=== PATIENT | female | born 1955 | race Caucasian/White ===

== ENCOUNTER 2017-09-07 17:45 | Observation (INO) | payer OTHER ==
[~2017-09-07] VITALS: Ht 172.7 cm; Wt 65.8 kg
[~2017-09-07 17:45] MED LIST: FLUOXETINE HYDR20 MG PO; FLUOXETINE10 MG PO; FLUOXETINE40 MG PO; KENALOG 0.1% LO60 ML TOP; LEVOTHYROXIN0.075 M1 PO; MAGNESIUM OXID400 MG PO; MASON NATURAL1200 MG PO; METAMUCIL CLEAR1 POW PO; NADOLOL20 MG PO; NASONEX0.05 MG/Ac NAS; PREDNICOT20 MG PO; PROTONIX 40MG T40 MG PO; PROZAC40 MG PO; VITAMIN B COMPL1 CAP PO; VITAMIN D31000 IU PO; XANAX 0.25MG0.25 MG PO
--- NOTE | 2017-09-07 18:04 | ED GI/GU/ABDOMINAL COMPLAINT ---
History of Present Illness General Chief Complaint: Abdominal Pain/Flank Pain Stated Complaint: ABD PAIN X1 DAY Source: patient, family, old records Exam Limitations: no limitations Vital Signs & Intake/Output Vital Signs & Intake/Output Vital Signs Date Time Temp Pulse Resp B/P B/P Pulse O2 O2 Flow FiO2 Mean Ox Delivery Rate 09/07 2146 97.6 61 18 113/64 95 Room Air 09/07 1751 94.6 56 16 124/78 99 Room Air Room Air Allergies Coded Allergies: Penicillins (Pt reports does not remember 09/07/17) Reconcile Medications Cholecalciferol (Vitamin D3) (Vitamin D) 1,000 UNIT TABLET 1 TAB PO DAILY SUPPLEMENT (Reported) Fish Oil/Dha/Epa (Fish Oil 1,200 MG Fish Oil) 1,200 MG-144 MG-216 MG CAPSULE 1 CAP PO DAILY SUPPLEMENT (Reported) Fluoxetine HCl 60 MG TABLET 1 TAB PO DAILY ANXIETY (Reported) Levothyroxine Sodium 75 MCG TABLET 1 TAB PO DAILY THYROID (Reported) Magnesium Oxide (Magnesium) 500 MG CAPSULE 1,000 MG PO DAILY SUPPLEMENT ( Reported) Mometasone Furoate (Nasonex) 50 MCG SPRAY.PUMP 2 SPRAY NASB AD PRN NASAL CONGESTION (Reported) Nadolol 20 MG TABLET 1 TAB PO DAILY HEART (Reported) Pantoprazole Sodium (Protonix) 40 MG TABLET.DR 1 TAB PO PRN GI (Reported) Rosuvastatin Calcium (Crestor) 10 MG TABLET 1 TAB PO DAILY CHOLESTEROL ( Reported) Vitamin B Complex 1 EACH CAPSULE 1 CAP PO DAILY SUPPLEMENT (Reported) Triage Note: PT TO TRIAGE WITH ABD PAIN SINCE 1000 TODAY. PT STATES IT COMES AND GOES AND DENIES N/V/D. DENIES FEVERS. PT STATES SHE IS PASSING GAS. HX OF OBSTRUCTIONS. Triage Nurses Notes Reviewed? yes ? n Is pt currently ? No Onset: Abrupt Duration: day(s): (1), constant Timing: recent history Quality/Severity: aching, cramping, moderate Severity Numbers: 7 Location: generalized abdomen Radiation: back Activities at Onset: none Prior Abdominal Problems: similar symptoms No Modifying Factors: none Associated Symptoms: denies HPI: 52-year-old female with history of recurrent SBO's, hysterectomy cholecystectomy presents to the ER complaining of a one-day history of midline abdominal pain radiating into her back. She denies any associated nausea vomiting diarrhea constipation. She's been passing gas normally she had a bowel movement prior to arrival. She is not taken anything for symptoms. No fever no chills no urinary complaints. Patient states that she came in because she is concerned she has another SBO. No sick contacts no chest pain or shortness of breath. pt last ate at lunch, denies worsening of her symptms with eating. (Robert Heard) Past History Travel History Traveled to [place] past 21 day No Medical History Any Pertinent Medical History? 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 No (Robert Heard) Review of Systems Review of Systems Constitutional: Reports: see HPI. All Other Systems: Reviewed and Negative Comments Review of systems: See HPI, All other systems negative. Constitutional, no chills no fever, HEENT: no sore throat no congestion Cardiovascular: No chest pain Skin: no rashes, no change in skin Respiratory: No dyspnea no cough GI: No nausea no vomiting, no diarrhea, no bloating/constipation : No dysuria No hematuria, no frequency Muscle skeletal: No joint pain, no back pain Neurologic: , no headache Heme/endocrine: No bruising (Robert Heard) Physical Exam Physical Exam General Appearance: well developed/nourished, no apparent distress, alert Gastrointestinal: normal bowel sounds, soft, non-tender Comments: Well-developed well-nourished person in no acute distress HEENT: Normal EENT exam; PERRL, EOMI, HEAD is atraumatic. moist mucous membranes. Neck: Supple, normal range of motion Back: Full range of motion Cardiovascular: Regular rate and rhythms no murmur Respiratory:No respiratory distress. Patient speaking in full complete sentences. Breath sounds clear to auscultation bilaterally: NO W/R/R Abdomen: Soft, nontender nondistended, no appreciable organomegaly. Normal bowel sounds. No rebound/guarding, No appreciable enlargement of the abdominal aorta, No ascites. Extremity: No edema, full range of motion of extremities Neuro: Alert oriented x3, motor sensory normal, There were no obvious focal neurologic abnormalities. Skin: No appreciable rash on exposed skin, skin is warm and dry. Psych: Mood and affect is normal, memory and judgment is normal. Core Measures ACS in differential dx? No Sepsis Present: No Sepsis Focused Exam Completed? No (Francine GARG,Robert) Progress Differential Diagnosis: appendicitis, bowel obstruction, colon cancer, diverticulitis, inflamm bowel dis, pancreatitis, PUD/GERD, perforated viscous, SBO, UTI/pyelo Plan of Care: Orders Procedure Date/time Status Nothing by Mouth 09/08 B Active Pathway - chart 09/07 2135 Active Code Status 09/[address] in observation 09/07 2118 Active Patient Data 09/07 2118 Active Add-on Test (ER Only) 09/07 194 Active HEPATITIS PANEL 09/07 1846 Active DIRECT BILIRUBIN 09/07 1846 Active Saline Lock 09/07 180 Active EKG 09/07 180 Active URINALYSIS 09/07 1751 Complete TROPONIN LEVEL 09/07 1751 Active LIPASE 09/07 1751 Active COMPREHENSIVE METABOLIC PANEL 09/07 1751 Active CBC WITHOUT DIFFERENTIAL 09/07 1751 Complete VTE Mechanical Prophylaxis 09/07 UNK Active Vital Signs 09/07 UNK Active Intake & Output 09/07 UNK Active Activity/Ambulation 09/07 UNK Active Current Medications Sig/Devin Start time Last Medication Dose Stop Time Status Admin Atorvastatin Calcium 40 MG 1700 09/08 1700 UNVr (Lipitor) Fluoxetine HCl 60 MG DAILY 09/08 1000 UNVr (Prozac) Levothyroxine Sodium 0.075 MG DAILY 09/08 1000 UNVr (Synthroid) Magnesium Oxide 1,000 MG DAILY 09/08 1000 UNVr (Mag-Ox) Nadolol 20 MG DAILY 09/08 1000 UNVr (Corgard) Pantoprazole Sodium 40 MG DAILY 09/08 1000 UNVr (Protonix) Heparin Sodium 5,000 UNIT Q8 09/07 2200 UNVr (Porcine) Ondansetron HCl 4 MG Q8P PRN 01/10 2145 UNVr (Zofran) Sodium Chloride 1,000 ML .Q10H 09/07 2144 UNVr (Normal Saline 0.9%) Laboratory Tests 09/07/171905: Urine Color YEL, Urine Clarity CLEAR, Urine pH 7.5, Ur Specific [place] 1.015, Urine Protein TRACE H, Urine Ketones TRACE H, Urine Nitrite NEG, Urine Bilirubin NEG, Urine Urobilinogen 0.2, Ur Leukocyte Esterase NEG, Ur Microscopic SEDIMENT EXAMINED, Urine RBC RARE, Urine WBC RARE, Ur Epithelial Cells RARE, Urine Bacteria RARE H, Urine Mucus FEW, Urine Hemoglobin NEG, Urine Glucose NEG 09/07/17 1846: Anion Gap 16, Estimated GFR > 60, BUN/Creatinine Ratio 22.9, Glucose 99, Calcium 10.5 H, Total Bilirubin 3.8 H, Direct Bilirubin 0.4, AST 37 H, ALT 56 H, Alkaline Phosphatase 92, Troponin I < 0.01, Total Protein 8.3 H, Albumin 5.0, Globulin 3.3, Albumin/Globulin Ratio 1.5, Lipase 62, CBC w Diff MAN DIFF ORDERED , RBC 4.91, MCV 91.6, MCH 31.1 H, RDW 12.1, MPV 8.2, Gran % 88.4 H, Lymphocytes % 7.7 L, Monocytes % 3.1, Eosinophils % 0.5, Basophils % 0.3, Absolute Granulocytes 8.6 H, Segmented Neutrophils 77 H, Band Neutrophils 8 H , Absolute Lymphocytes 0.7 L, Lymphocytes 11 L, Monocytes 3, Absolute Monocytes 0.3, Absolute Eosinophils 0, Basophils 1, Absolute Basophils 0, Platelet Estimate ADEQUATE, Normocytic RBCs VERIFIED, Normochromic RBCs VERIFIED , PUBS MCHC 34.0, Hepatitis A IgM Ab Pending, Hep Bs Antigen Pending, Hep B Core IgM Ab Conf Pending, Hepatitis C Antibody Pending Patient declining anything for pain and offered she denies nausea vomiting. Labs ordered CAT scan ordered case discussed with Dr. rossi 1929 repeat evaluation patient states symptoms have resolved pending labs and CAT scan pts bili noted to be chronically elevated dating back through 2014- 2.1-3.7 as with elvated lfts, pt has no ruq pain- pt has history of gilbert syndrome [address] remains asymptomatic I discussed the patient CAT scan findings she last ate around lunchtime this afternoon.she denies pain, no nausea. 2029 case d/w dr alvarado will have surgical pa eval 5- sugrical pa chaz tavares in dept will place pt in obs under dr alvarado, no ngt at thsi time Diagnostic Imaging: Viewed by Me: CT Scan. Discussed w/RAD: CT Scan. Radiology Impression: PATIENT: RONALD ZALDIVAR PRESENT AGE: 62 PATIENT ACCOUNT NO: [id number] : 56 LOCATION: ER ORDERING PHYSICIAN: Robert GARG SERVICE DATE: 09/07/17 EXAM TYPE: CAT - CT ABD & PELVIS W IV CONTRAST EXAMINATION: CT ABDOMEN AND PELVIS WITH CONTRAST CLINICAL INFORMATION: Midline abdominal pain for one day. COMPARISON: CT scan abdomen pelvis 07/26/2016 TECHNIQUE: Multidetector volumetric imaging was performed of the abdomen and pelvis following IV administration of 95 mL of Optiray 320 intravenous contrast. Sagittal and coronal reformatted images were obtained on the technologist's workstation. DLP: 286.4 mGy-cm FINDINGS: LUNG BASES: Pacemaker lead at base of heart right ventricle. Lung bases are clear. LIVER, GALLBLADDER, AND BILIARY TREE: The liver is normal in size, shape, and attenuation. No focal hepatic lesion or biliary ductal dilatation is present. Gallbladder is absent. The extrahepatic CBD measures 6 mm. No calcified stone in the bile ducts. PANCREAS: Unremarkable. SPLEEN: Unremarkable. ADRENAL GLANDS: Unremarkable. KIDNEYS AND URETERS: The kidneys are normal in size, shape, and attenuation. No hydronephrosis, hydroureter, or calculi seen. No perinephric stranding. BLADDER: Unremarkable. GASTROINTESTINAL TRACT: There is a pattern of dilated and nondilated bowel loops in the abdomen. The stomach is relatively distended with fluid and some debris. The duodenum is decompressed as are proximal small bowel loops. At the midabdomen there is dilated small bowel containing primarily fluid. This distention extends down to the terminal ileum but there is a small bowel loop in the low pelvis which is decompressed. This is interposed between dilated segments. There is also fluid and mild dilatation of the ascending colon, transverse and descending colon. The distal descending colon and the sigmoid colon are decompressed. Small volume of stool in the colon. No diverticula of the colon. The appendix is normal. No bowel wall edema. Bowel pattern likely from a small bowel obstruction. MESENTERY: No free air or free fluid. No inflammation. ABDOMINAL WALL: No significant hernia is appreciated. LYMPH NODES: Normal. VASCULAR: Atherosclerotic vascular wall calcifications of aorta without aneurysm. PELVIC VISCERA: Uterus is absent. No adnexal adenopathy. OSSEOUS STRUCTURES: Mild degenerative spondylosis of the facet joints lower lumbar spine. Grade 1 anterolisthesis of L3 on L4 due to facet joint arthrosis. IMPRESSION: Abnormal bowel pattern likely due to a small bowel obstruction. DICTATED BY: Emmanuel Miller MD DATE/TIME DICTATED:09/07/171956 EDGE BANDING OFF BEARER:LOLA DATE/TIME TRANSCRIBED:09/07/171956 CONFIDENTIAL, DO NOT COPY WITHOUT APPROPRIATE AUTHORIZATION. <Electronically signed in Other Vendor System> SIGNED BY: Emmanuel Miller MD 09/07/172013 Initial ED EKG: atrial paced at 70, no acute st seg changes, normal axis Prior EKG: unchanged (Robert Heard) Departure Departure Time of Disposition: 2130 Disposition: STILL A PATIENT Condition: Stable Clinical Impression Primary Impression: Small bowel obstruction Secondary Impressions: Elevated bilirubin Referrals: Pantera LEON,Ted Siegel (PCP/Family) Departure Forms: Customer Survey General Discharge Information Observation Note Spoke With: Александр LEON,Jose Maguire [facility] Patient In: Non-ED OBS Care Area Rationale for Observation: My rational for observation is as follows serial abdominal exams IV fluids and IV pain medication IV antiemetics premature discharge in medically harmful given patient's recurrent history of SBO.. (Robert Heard) PA/GEOSCIENCE SPECIALIST Co-Sign Statement Statement: ED Attending supervision documentation- x I saw and evaluated the patient. I have also reviewed all the pertinent lab results and diagnostic results. I agree with the findings and the plan of care as documented in the PA's/GEOSCIENCE SPECIALIST's documentation. N/V/D, diffuse abdominal tenderness, hyperactive bs w SBO on CT [] I have reviewed the ED Record and agree with the PA's/GEOSCIENCE SPECIALIST's documentation. [] Additions or exceptions (if any) to the PAs/GEOSCIENCE SPECIALIST's note and plan are summarized below: [] (Kinsey LEON,Dustin)
[2017-09-07] MEDS ORDERED: LEVOTHYROXINE75 MCG PO (18:22)
[2017-09-07] MEDS ORDERED: CRESTOR10 M1 PO (18:22)
[2017-09-07] MEDS ORDERED: NADOLOL20 M1 PO (18:23)
[2017-09-07] MEDS ORDERED: MAGNESIUM500 M2 PO (18:23)
[2017-09-07] MEDS ORDERED: FISH OIL 1,2001 EACH PO (18:24)
[2017-09-07] MEDS ORDERED: VITAMIN D1000 UNIT PO (18:24)
[2017-09-07] MEDS ORDERED: VITAMIN B COMP1 EACH PO (18:24)
[2017-09-07] MEDS ORDERED: ALPRAZOLAM0.25 M1 PO (18:25)
[2017-09-07] MEDS ORDERED: NASONEX17 GM NASB (18:25)
[2017-09-07] MEDS ORDERED: PROTONIX40 M3 PO (18:25)
[2017-09-07] MEDS ORDERED: FLUOXETINE HCL60 MG PO (18:28)
[2017-09-07 19:08] LABS: ABSOLUTE BASOPHIL COUNT 0 /CUMM (0.0-0.2); ABSOLUTE EOSINOPHIL COUNT 0 /CUMM (0.0-0.7); ABSOLUTE GRANULOCYTE CT 8.6 /CUMM (1.4-6.5); ABSOLUTE LYMPH COUNT 0.7 /CUMM (1.2-3.4); ABSOLUTE MONOCYTE COUNT 0.3 /CUMM (0.10-0.60); BASOPHIL % 0.3 % (0.0-2.0); EOSINOPHIL % 0.5 % (0-5); MEAN CORPUSCULAR HGB 31.1 PG (27.0-31.0); MEAN CORPUSCULAR VOLUME 91.6 FL (81.0-99.0); MEAN PLATELET VOLUME 8.2 FL (7.4-10.4); PLATELET COUNT 234 /CUMM (130-400); RBC DISTRIBUTION WIDTH 12.1 % (11.5-14.5); RED BLOOD CELL CT 4.91 /CUMM (4.20-5.40); WHITE BLOOD CELL COUNT 9.8 /CUMM (4.8-10.8)
[2017-09-07 19:12] LABS: GRANULOCYTE % 88.4 % (42.2-75.2)
--- NOTE | 2017-09-07 20:14 | CT SCAN REPORT ---
EXAMINATION: CT ABDOMEN AND PELVIS WITH CONTRAST CLINICAL INFORMATION: Midline abdominal pain for one day. COMPARISON: CT scan abdomen pelvis 07/26/2016 TECHNIQUE: Multidetector volumetric imaging was performed of the abdomen and pelvis following IV administration of 95 mL of Optiray 320 intravenous contrast. Sagittal and coronal reformatted images were obtained on the technologist's workstation. DLP: 286.4 mGy-cm FINDINGS: LUNG BASES: Pacemaker lead at base of heart right ventricle. Lung bases are clear. LIVER, GALLBLADDER, AND BILIARY TREE: The liver is normal in size, shape, and attenuation. No focal hepatic lesion or biliary ductal dilatation is present. Gallbladder is absent. The extrahepatic CBD measures 6 mm. No calcified stone in the bile ducts. PANCREAS: Unremarkable. SPLEEN: Unremarkable. ADRENAL GLANDS: Unremarkable. KIDNEYS AND URETERS: The kidneys are normal in size, shape, and attenuation. No hydronephrosis, hydroureter, or calculi seen. No perinephric stranding. BLADDER: Unremarkable. GASTROINTESTINAL TRACT: There is a pattern of dilated and nondilated bowel loops in the abdomen. The stomach is relatively distended with fluid and some debris. The duodenum is decompressed as are proximal small bowel loops. At the midabdomen there is dilated small bowel containing primarily fluid. This distention extends down to the terminal ileum but there is a small bowel loop in the low pelvis which is decompressed. This is interposed between dilated segments. There is also fluid and mild dilatation of the ascending colon, transverse and descending colon. The distal descending colon and the sigmoid colon are decompressed. Small volume of stool in the colon. No diverticula of the colon. The appendix is normal. No bowel wall edema. Bowel pattern likely from a small bowel obstruction. MESENTERY: No free air or free fluid. No inflammation. ABDOMINAL WALL: No significant hernia is appreciated. LYMPH NODES: Normal. VASCULAR: Atherosclerotic vascular wall calcifications of aorta without aneurysm. PELVIC VISCERA: Uterus is absent. No adnexal adenopathy. OSSEOUS STRUCTURES: Mild degenerative spondylosis of the facet joints lower lumbar spine. Grade 1 anterolisthesis of L3 on L4 due to facet joint arthrosis. IMPRESSION: Abnormal bowel pattern likely due to a small bowel obstruction.
--- NOTE | 2017-09-07 21:21 | Admission Core Measures ---
Acute Coronary Syndrome (CM) ACS Core Measures Acute Coronary Syndrome Diagnosis No Congestive Heart Failure (NEW) CHF Core Measures Congestive Heart Failure Diagnosis No Cerebrovascular Accident (NEW) CVA Core Measures CVA/TIA Diagnosis No Venous Thromboembolism VTE Core Tello (View Protocol) VTE Risk Factors Age>40 No Mechanical VTE Prophylaxis d/t N/A MechProphylax Ordered No VTE Pharm Prophylaxis d/t NA PharmProphylax ordered Problem List As ranked by this Provider includes Assessment & Plan 1. Small bowel obstruction HOME MEDS Home Med List Cholecalciferol (Vitamin D3) (Vitamin D) 1,000 UNIT TABLET 1 TAB PO DAILY SUPPLEMENT (Reported) Fish Oil/Dha/Epa (Fish Oil 1,200 MG Fish Oil) 1,200 MG-144 MG-216 MG CAPSULE 1 CAP PO DAILY SUPPLEMENT (Reported) Fluoxetine HCl 60 MG TABLET 1 TAB PO DAILY ANXIETY (Reported) Levothyroxine Sodium 75 MCG TABLET 1 TAB PO DAILY THYROID (Reported) Magnesium Oxide (Magnesium) 500 MG CAPSULE 1,000 MG PO DAILY SUPPLEMENT ( Reported) Mometasone Furoate (Nasonex) 50 MCG SPRAY.PUMP 2 SPRAY NASB AD PRN NASAL CONGESTION (Reported) Nadolol 20 MG TABLET 1 TAB PO DAILY HEART (Reported) Pantoprazole Sodium (Protonix) 40 MG TABLET.DR 1 TAB PO PRN GI (Reported) Rosuvastatin Calcium (Crestor) 10 MG TABLET 1 TAB PO DAILY CHOLESTEROL ( Reported) Vitamin B Complex 1 EACH CAPSULE 1 CAP PO DAILY SUPPLEMENT (Reported)
--- NOTE | 2017-09-07 21:34 | History & Physical ---
Miguel Kasper 09/07/172120: General Information and HPI MD Statement: I have seen and personally examined RONALD CARTER and documented this H&P. The patient is a 62 year old F who presented with a patient stated chief complaint of [abdominal pain]. Source of Information: patient, family Exam Limitations: no limitations History of Present Illness: Ms. Carter is a 62-year-old female with a past medical history of hypertension hypothyroidism GERD anxiety and asthma, she also has a pacemaker defibrillator who presents with a 1 day history of sharp abdominal pain after straining bowel movement at 5 PM this evening. She states that one day prior leading up to this episode she complained of intermittent pain with bloating. She denies nausea or vomiting. There are no changes in her urinary habits. She denies fever chills at home. CAT scan taken today is suggestive of small bowel obstruction with dilated loops of bowel but no free air. She is known to the surgical service and has been treated in the past for small bowel obstructions that have resolved with conservative nonsurgical management. Allergies/Medications Allergies: Coded Allergies: Penicillins (Pt reports does not remember 09/07/17) Home Med list Cholecalciferol (Vitamin D3) (Vitamin D) 1,000 UNIT TABLET 1 TAB PO DAILY SUPPLEMENT (Reported) Fish Oil/Dha/Epa (Fish Oil 1,200 MG Fish Oil) 1,200 MG-144 MG-216 MG CAPSULE 1 CAP PO DAILY SUPPLEMENT (Reported) Fluoxetine HCl 60 MG TABLET 1 TAB PO DAILY ANXIETY (Reported) Levothyroxine Sodium 75 MCG TABLET 1 TAB PO DAILY THYROID (Reported) Magnesium Oxide (Magnesium) 500 MG CAPSULE 1,000 MG PO DAILY SUPPLEMENT ( Reported) Mometasone Furoate (Nasonex) 50 MCG SPRAY.PUMP 2 SPRAY NASB AD PRN NASAL CONGESTION (Reported) Nadolol 20 MG TABLET 1 TAB PO DAILY HEART (Reported) Pantoprazole Sodium (Protonix) 40 MG TABLET.DR 1 TAB PO PRN GI (Reported) Rosuvastatin Calcium (Crestor) 10 MG TABLET 1 TAB PO DAILY CHOLESTEROL ( Reported) Vitamin B Complex 1 EACH CAPSULE 1 CAP PO DAILY SUPPLEMENT (Reported) Past History Travel History Traveled to [place] past 21 day No Medical History Neurological: NONE EENT: RINGING IN EARS Cardiovascular: hyperlipidemia, PACEMAKER, DEFIBULATOR VENTRICULAR TACHYCARDIA Respiratory: ASTHMA (EXERTIONAL) Gastrointestinal: DIVERTICULOSIS SBO Hepatic: ELEVATED BILIRUBIN gilbert syndrome Renal: NONE Musculoskeletal: NONE Psychiatric: anxiety, OCD Endocrine: HYPOTHYRIOD, PARTIAL THYRIOECTOMY Blood Disorders: NONE Cancer(s): NONE SILK SCREEN ETCHER/Reproductive: fibroid History of MRSA: No History of VRE: No History of CDIFF: No Surgical History Surgical History: cholecystectomy, hysterectomy (PARTIAL) Past Family/Social History Psychosocial History Services at Home: None ETOH Use: occasional use Illicit Drug Use: denies illicit drug use Review of Systems Review of Systems Constitutional: Denies: no symptoms, see HPI, chills, diaphoresis, fever, malaise, weakness, unexplained weight loss. Exam & Diagnostic Data Last 24 Hrs of Vital Signs/I&O Vital Signs Date Time Temp Pulse Resp B/P B/P Pulse O2 O2 Flow FiO2 Mean Ox Delivery Rate 09/07 1751 94.6 56 16 124/78 99 Room Air Room Air Physical Exam General Appearance Alert, Oriented X3, Cooperative, No Acute Distress Skin No Significant Lesion Skin Temp/Moisture Exam: Warm/Dry HEENT PERRLA Cardiovascular Regular Rate, Normal S1, Normal S2 Lungs Clear to Auscultation, Normal Air Movement Abdomen Normal Bowel Sounds, Soft, No Tenderness, softly distended Neurological Strength at 5/5 X4 Ext Extremities No Cyanosis, No Edema, Normal Pulses Last 24 Hrs of Labs/Eugenio: Laboratory Tests 09/07/17 1906: Urine Color YEL, Urine Clarity CLEAR, Urine pH 7.5, Ur Specific [place] 1.015, Urine Protein TRACE H, Urine Ketones TRACE H, Urine Nitrite NEG, Urine Bilirubin NEG, Urine Urobilinogen 0.2, Ur Leukocyte Esterase NEG, Ur Microscopic SEDIMENT EXAMINED, Urine RBC RARE, Urine WBC RARE, Ur Epithelial Cells RARE, Urine Bacteria RARE H, Urine Mucus FEW, Urine Hemoglobin NEG, Urine Glucose NEG 09/07/17 1846: Anion Gap 16, Estimated GFR > 60, BUN/Creatinine Ratio 22.9, Glucose 99, Calcium 10.5 H, Total Bilirubin 3.8 H, Direct Bilirubin 0.4, AST 37 H, ALT 56 H, Alkaline Phosphatase 92, Troponin I < 0.01, Total Protein 8.3 H, Albumin 5.0, Globulin 3.3, Albumin/Globulin Ratio 1.5, Lipase 62, CBC w Diff MAN DIFF ORDERED , RBC 4.91, MCV 91.6, MCH 31.1 H, RDW 12.1, MPV 8.2, Gran % 88.4 H, Lymphocytes % 7.7 L, Monocytes % 3.1, Eosinophils % 0.5, Basophils % 0.3, Absolute Granulocytes 8.6 H, Segmented Neutrophils 77 H, Band Neutrophils 8 H , Absolute Lymphocytes 0.7 L, Lymphocytes 11 L, Monocytes 3, Absolute Monocytes 0.3, Absolute Eosinophils 0, Basophils 1, Absolute Basophils 0, Platelet Estimate ADEQUATE, Normocytic RBCs VERIFIED, Normochromic RBCs VERIFIED , PUBS MCHC 34.0, Hepatitis A IgM Ab Pending, Hep Bs Antigen Pending, Hep B Core IgM Ab Conf Pending, Hepatitis C Antibody Pending Diagnostic Data Other Results SERVICE DATE: 09/07/17 EXAM TYPE: CAT - CT ABD & PELVIS W IV CONTRAST EXAMINATION: CT ABDOMEN AND PELVIS WITH CONTRAST CLINICAL INFORMATION: Midline abdominal pain for one day. COMPARISON: CT scan abdomen pelvis 07/26/2016 TECHNIQUE: Multidetector volumetric imaging was performed of the abdomen and pelvis following IV administration of 95 mL of Optiray 320 intravenous contrast. Sagittal and coronal reformatted images were obtained on the technologist's workstation. DLP: 286.4 mGy-cm FINDINGS: LUNG BASES: Pacemaker lead at base of heart right ventricle. Lung bases are clear. LIVER, GALLBLADDER, AND BILIARY TREE: The liver is normal in size, shape, and attenuation. No focal hepatic lesion or biliary ductal dilatation is present. Gallbladder is absent. The extrahepatic CBD measures 6 mm. No calcified stone in the bile ducts. PANCREAS: Unremarkable. SPLEEN: Unremarkable. ADRENAL GLANDS: Unremarkable. KIDNEYS AND URETERS: The kidneys are normal in size, shape, and attenuation. No hydronephrosis, hydroureter, or calculi seen. No perinephric stranding. BLADDER: Unremarkable. GASTROINTESTINAL TRACT: There is a pattern of dilated and nondilated bowel loops in the abdomen. The stomach is relatively distended with fluid and some debris. The duodenum is decompressed as are proximal small bowel loops. At the midabdomen there is dilated small bowel containing primarily fluid. This distention extends down to the terminal ileum but there is a small bowel loop in the low pelvis which is decompressed. This is interposed between dilated segments. There is also fluid and mild dilatation of the ascending colon, transverse and descending colon. The distal descending colon and the sigmoid colon are decompressed. Small volume of stool in the colon. No diverticula of the colon. The appendix is normal. No bowel wall edema. Bowel pattern likely from a small bowel obstruction. MESENTERY: No free air or free fluid. No inflammation. ABDOMINAL WALL: No significant hernia is appreciated. LYMPH NODES: Normal. VASCULAR: Atherosclerotic vascular wall calcifications of aorta without aneurysm. PELVIC VISCERA: Uterus is absent. No adnexal adenopathy. OSSEOUS STRUCTURES: Mild degenerative spondylosis of the facet joints lower lumbar spine. Grade 1 anterolisthesis of L3 on L4 due to facet joint arthrosis. IMPRESSION: Abnormal bowel pattern likely due to a small bowel obstruction. DICTATED BY: Emmanuel Miller MD DATE/TIME DICTATED:09/07/171956 BUNG SEWER:LOLA DATE/TIME TRANSCRIBED:09/07/171956 Assessment/Plan Assessment: Mrs. Carter is a 62-year-old female who presents with sharp doubling over abdominal pain after bowel movement this evening at 5 PM. CAT scan taken today demonstrates dilated loops of bowel consistent with bowel obstruction. Given her past medical history of previous admissions within 2 years for small bowel obstruction, that were treated conservatively without surgical intervention, is necessary at this time to at least observe her overnight with serial abdominal exams and possibly repeat imaging in the morning to assess if surgical indication is warranted or conservative management to continue to resolve this obstruction. The patient understands and is in agreement. Plan Nothing by mouth now, IV fluids Serial abdominal exams Heparin subcutaneous/Alps for DVT prophylaxis If the patient begins to vomit we will place an NG tube and she is aware of this Dr. Fountain will evaluate the patient in the a.m. As Ranked By This Provider Problem List: 1. Small bowel obstruction Core Measures/Misc (05/15) Acute Coronary Syndrome ACS Diagnosis: No Congestive Heart Failure Congestive Heart Failure Diagnosis No Cerebrovascular Accident CVA/TIA Diagnosis: No VTE (View Protocol) VTE Risk Factors Age>40 No Mechanical VTE Prophylaxis d/t N/A MechProphylax Ordered No VTE Pharm Prophylaxis d/t NA PharmProphylax ordered Sepsis (View protocol) Sepsis Present: No Jose Fountain MD 09/08/17 1129: Attending Review Statement Attending Statement Attending MD Statement: examined this patient, discuss w/resident/PA/APPLIANCE INSTALLER, reviewed images Attending Assessment/Plan: RECURRENT SBO DUE TO ADHESIVE DISEASE. ADMIT FOR MEDICAL MANAGEMENT
--- NOTE | 2017-09-07 21:54 | RADIOLOGY REPORT ---
EXAMINATION: CHEST 1 VIEW CLINICAL INFORMATION: Pain. COMPARISON: None. TECHNIQUE: An AP view of the chest is provided. FINDINGS: The cardiac silhouette is not enlarged. Pacer leads overlie the right atrium and right ventricle. The mediastinal and hilar contours are unremarkable. There are neither pleural effusions nor pneumothoraces. There are no consolidations. The osseous structures are unremarkable. IMPRESSION: No evidence for acute disease.
[2017-09-08 06:00] VITALS: BP 128/54
--- NOTE | 2017-09-08 08:49 | PN- General Surgery ---
See Addendum Subjective Subjective: Awake, alert Feels good this morning No further pain since admission +flatus, no nausea Objective Vital Signs and I&Os Vital Signs Date Time Temp Pulse Resp B/P B/P Pulse O2 O2 Flow FiO2 Mean Ox Delivery Rate 09/08 0814 128/70 09/08 0600 97.9 57 18 128/54 97 Room Air 09/07 2146 97.6 61 18 113/64 95 Room Air 09/07 1751 94.6 56 16 124/78 99 Room Air Room Air Intake & Output 09/08 1600 09/08 0800 09/08 0000 09/07 1600 09/07 0800 09/07 0000 Intake Total 800 1000 Output Total Balance 800 1000 Intake, IV 800 1000 Patient 145 lb Weight Weight Reported by Patient Measurement Method Physical Exam: vss, afebrile General: alert and oriented times three Abd: soft, good bs, nontender everywhere, nondistended Ext: warm, no edema Assessment/Plan Assessment/Plan 62yo female with admitted with recurrent sbo - resolved advance diet discharge home if tolerates Core Measures Venous Thromboembolism VTE Risk Factors Age>40 No Mechanical VTE Prophylaxis d/t N/A MechProphylax Ordered No VTE Pharm Prophylaxis d/t NA PharmProphylax ordered
--- NOTE | 2017-09-08 14:09 | Patient Discharge Instructions ---
Discharge Instructions General Discharge Information You were seen/treated for: Small bowel obstruction Watch for these problems: Nausea, vomiting, increased abdominal pain Diet Recommended Diet: Low Residue Activity Full Activity/No Limits: Yes Acute Coronary Syndrome Inclusion Criteria At DC or during hospital stay patient has or had the following: Discharge Core Measures Meds if any: Prescribed or Continued at Discharge Meds if any: NOT Prescribed or Continued at Discharge Congestive Heart Failure Inclusion Criteria At DC or during hospital stay patient has or had the following: Discharge Core Measures Meds if any: Prescribed or Continued at Discharge Meds if any: NOT Prescribed or Continued at Discharge Cerebrovascular accident Inclusion Criteria At DC or during hospital stay patient has or had the following: CVA/TIA Diagnosis No Discharge Core Measures Meds if any: Prescribed or Continued at Discharge Meds if any: NOT Prescribed or Continued at Discharge Venous thromboembolism Discharge Core Measures - Per Current guidelines, there needs to be overlap - treatment for the first 5 days of Warfarin therapy. - If discharged on Warfarin prior to 5 days of - overlap therapy, the patient will need to be - assessed for post discharge needs including - *Post discharge parental anticoagulation - *Warfarin and/or parental anticoagulation education - *Follow up date to check INR post discharge Meds if any: Prescribed or Continued at Discharge Note: Overlap Therapy is Warfarin and Anticoagulant Meds if any: NOT Prescribed or Continued at Discharge
[2017-09-08 14:14] VITALS: BP 104/70
[2017-09-08 15:53] VITALS: BP 84/50
--- NOTE | 2017-09-08 19:57 | Surg Short-stay <48hrs Dis Sum ---
Visit Information Visit Dates Admission Date: 09/07/17 Discharge Date: 09/08/17 Surgical Short Stay DC Summary Admission Diagnosis: SBO Final Diagnosis: SAME Procedure(s): NONE Summary/Significant Findings: SBO RESOLVED AFTER 6 HOURS Condition at Discharge: GOOD Discharge Disposition: home or self care Discharge instructions provided to patient/family: Yes Post discharge follow-up plan: PCP ARRANGED.
== END 2017-09-08 16:30 ==
LOC: ERH 17:45 → ERHI 21:19 → 2NA 21:19 → ENRESERV 22:37 → 2NA 22:59
PROVIDERS: Physician Assistant Medical
DX: K56.50 Intestinal adhesions [bands], unspecified as to partial versus complete obstruction (principal); I10 Essential (primary) hypertension; E03.9 Hypothyroidism, unspecified; K21.9 Gastro-esophageal reflux disease without esophagitis; F41.9 Anxiety disorder, unspecified; J45.909 Unspecified asthma, uncomplicated; Z95.0 Presence of cardiac pacemaker; F42.9 Obsessive-compulsive disorder, unspecified
CPT/HCPCS: 6030; 71045; 74177; 81001; 93005; 93010; 96360; 96372; G0378; J1644